=== PATIENT | male | born 1990 | race Two or more races ===

== ENCOUNTER 2017-10-28 10:45 | Emergency (ER) | payer BC ==
[2017-10-28 11:02] VITALS: TEMP 98.2
--- NOTE | 2017-10-28 12:02 | EDPHY ---
H & P Time Seen by Provider: 10/28/17 11:38 HPI/ROS: CHIEF COMPLAINT: Right middle finger injury HISTORY OF PRESENT ILLNESS: 27-year-old male presents to the emergency department with laceration to his right middle finger. The patient was at home and cut it on a piece of metal just prior to arrival. He is right-hand dominant. He was able to control the bleeding with firm direct pressure. His last tetanus shot was 7 or 8 years ago. Denies any other trauma or injury. ROS: Denies numbness or tingling in his fingers, retained foreign body. Past Medical/Surgical History: Negative Social History: Single and lives in [place] Smoking Status: Never smoked Physical Exam: Patient has small 1 cm flap laceration dorsal aspect of the right 3rd finger overlying PIP joint. Slow active bleeding noted. No evidence of tendon injury. No evidence of retained foreign body. Normal sensation to light touch with normal 2 point discrimination. Strong radial pulse at the right wrist. The other fingers do not appear injured. He has full range of motion of his fingers. Constitutional: Initial Vital Signs Temperature (C) 36.8 C 10/28/17 10:48 Heart Rate 72 10/28/17 10:48 Respiratory Rate 16 10/28/17 10:48 Blood Pressure 112/74 10/28/17 10:48 O2 Sat (%) 98 10/28/17 10:48 O2 Delivery Mode Room Air Allergies/Adverse Reactions: No Known Allergies Allergy (Verified 10/28/17 10:59) Home Medications: Medication Instructions Recorded NK [No Known Home Meds] 10/28/17 MDM/Departure - MDM ED Course/Re-evaluation: His tetanus shot is current. I offered sutures, however the patient declined. The wound was cleansed and dressed and he was given wound care precautions. - Depart Disposition: Home, Routine, Self-Care Clinical Impression: Superficial flap laceration right finger Condition: Good Instructions: Laceration (ED), Acute Wounds (ED) Additional Instructions: Ibuprofen 400 mg every 8 hr as needed for pain. Keep wound dry, clean and protected. Return to the emergency department if he notices any signs or symptoms of infection such as redness, swelling, increased pain, fever, purulent drainage. 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
[2017-10-28 12:19] VITALS: BP 118/76; PULSE 68; RESP 18; O2SAT 94
== END 2017-10-28 12:18 | disposition home or self-care (01) ==
DX: S61.212A Laceration without foreign body of right middle finger without damage to nail, initial encounter (principal); W26.0XXA Contact with knife, initial encounter; Y92.009 Unspecified place in unspecified non-institutional (private) residence as the place of occurrence of the external cause